=== PATIENT | female | born 1950 | race Caucasian/White ===

== ENCOUNTER → 2016-12-27 | Outpatient (CLI) | payer BC ==
[2015-07-18 19:47] VITALS: BP 196/89
--- NOTE | 2016-12-27 13:50 | CARD ---
APPROVED REPORT EXAM: Two-dimensional and M-mode echocardiogram with Doppler and color Doppler. Other Information Quality : AverageHR: 94bpm Rhythm : Atrial Fibrillation INDICATION Atrial Fibrillation 2D DIMENSIONS RVDd3.4 (2.9-3.5cm)Left Atrium(2D)4.3 (1.6-4.0cm) IVSd0.9 (0.7-1.1cm)Aortic Root(2D)2.7 (2.0-3.7cm) LVDd4.8 (3.9-5.9cm)LVOT Diameter2.2 (1.8-2.4cm) PWd0.9 (0.7-1.1cm)LVDs3.2 (2.5-4.0cm) FS (%) 33.2 %SV65.5 ml LVEF(%)61.7 (>50%) Aortic Valve AoV Peak Kai.123.0cm/sAoV VTI23.0cm AO Peak GR.6.1mmHgLVOT Peak Kai.95.8cm/s LVOT VTI 19.12cmAO Mean GR.4mmHg MARLO (VMAX)2.61ra8LXY (VTI)3.18cm2 Mitral Valve MV E Uycpmvil660.4cm/sMV DECEL HZTD957ms MV E Mean Gr.5mmHgMV DOG43po MVA (PHT)3.20cm2 Pulmonary Valve PV Peak Ddxwmfks15.0cm/sPV Peak Grad.2mmHg RVOT VTI12.4cm Tricuspid Valve TR P. Uzmnushk037lq/sRAP NOPSPMFC4dyCv TR Peak Gr.99seYeLBKT44aqZe LEFT VENTRICLE The left ventricle is normal size. There is normal left ventricular wall thickness. Left ventricle sy stolic function is normal. The Ejection Fraction is 55-60%. There is normal LV segmental wall motion. Diastolic function could not be assessed due to atrial fibrillation. There is no ventricular septal defect visualized. RIGHT VENTRICLE The right ventricle is normal size. The right ventricular systolic function is normal. ATRIA The left atrium is mildly dilated. The right atrium size is normal. The interatrial septum is intact with no evidence for an atrial septal defect or patent foramen ovale as noted on 2-D or Doppler imagi ng. AORTIC VALVE The aortic valve is normal in structure and function. The aortic valve is trileaflet. Doppler and Col or Flow revealed no significant aortic regurgitation. There is no significant aortic valvular stenosi s. MITRAL VALVE The mitral valve leaflets are calcified. There is no evidence of mitral valve prolapse. There is no m itral valve stenosis. Doppler and Color Flow revealed moderate mitral regurgitation. TRICUSPID VALVE The tricuspid valve is normal in structure. Doppler and Color Flow revealed mild tricuspid regurgitat ion. The PA pressure was estimated at 32 mmHg. There is no tricuspid valve stenosis. PULMONIC VALVE The pulmonary valve is normal in structure. Doppler and Color Flow revealed mild pulmonic valvular re gurgitation. There is no pulmonic valvular stenosis. GREAT VESSELS The aortic root is normal in size. The ascending aorta is mildly dilated at 3.6cm. Normal pulmonary v enous flow (Doppler). The IVC is normal in size and collapses >50% with inspiration. PERICARDIAL EFFUSION There is no pleural effusion. There is no evidence of significant pericardial effusion. Critical Notification Critical Value: No <Conclusion> The left ventricle is normal size. Left ventricle systolic function is normal. The Ejection Fraction is 55-60%. There is no significant aortic valvular stenosis. Doppler and Color Flow revealed no significant aortic regurgitation. Doppler and Color Flow revealed moderate mitral regurgitation. Doppler and Color Flow revealed mild tricuspid regurgitation. The PA pressure was estimated at 32 mmHg. The ascending aorta is mildly dilated at 3.6cm.
== END | disposition home or self-care (01) ==
LOC: ECHO 11:04
PROVIDERS: ATTEND Internal Medicine Cardiovascular Disease
DX: I48.0 Paroxysmal atrial fibrillation (principal); I34.0 Nonrheumatic mitral (valve) insufficiency; I07.1 Rheumatic tricuspid insufficiency; I37.1 Nonrheumatic pulmonary valve insufficiency
CPT/HCPCS: 93306

== ENCOUNTER → 2017-03-15 | Day surgery (SDC) | payer BC ==
[2015-07-18 19:47] VITALS: BP 196/89
[~2017-03-15] MED LIST: 0.9 % SODIUM CHLORIDE 10 ML DISP.SYRIN. IV PRN; ASPI325T4 PO; ATOR40TA59 PO; FLEC100T PO; FURO20TA3 PO; IV RINGERS,LACTATED 1000ML 1,000 ML IV SCH; METO25TA9 PO; RIVA20TA2 PO
--- NOTE | 2017-03-15 11:53 | EKG ---
[facility] [address] [place] [address] Test Date: 2017-03-15 Test Time: 11:51:28 Pat Name: MARIA GUADALUPE SEPULVEDA Department: Room: Gender: F [employer]: TV : 1950 Requested By: YESSY CUNHA Order Number: [id number] Reading MD: Rg Cooper Measurements Intervals [place] Rate: 60 P: 36 MT: 232 QRS: 21 QRSD: 102 T: 19 QT: 456 QTc: 461 Interpretive Statements SINUS RHYTHM PROLONGED MT INTERVAL RBBB Electronically Signed On 03-19-2017 9:44:00 CDT by Rg Cooper
== END | disposition home or self-care (01) ==
LOC: SURG 11:25
PROVIDERS: ATTEND Internal Medicine Cardiovascular Disease
DX: I45.10 Unspecified right bundle-branch block (principal); I48.91 Unspecified atrial fibrillation; E78.00 Pure hypercholesterolemia, unspecified; I10 Essential (primary) hypertension; Z98.41 Cataract extraction status, right eye; Z98.42 Cataract extraction status, left eye; Z98.51 Tubal ligation status
CPT/HCPCS: 93005

== ENCOUNTER → 2019-01-08 | Outpatient (CLI) | payer BC ==
[2015-07-18 19:47] VITALS: BP 196/89
[~2019-01-08] MED LIST changes: -0.9 % SODIUM CHLORIDE 10 ML DISP.SYRIN. IV PRN; -ASPI325T4 PO; +ASPI325T8 PO; -IV RINGERS,LACTATED 1000ML 1,000 ML IV SCH; +METO-239 PO; -METO25TA9 PO
--- NOTE | 2019-01-09 10:12 | RAD ---
DATE: 01/09/2019 EXAM: MAMMO PERFECTO SCREENING BILATERAL HISTORY: Baseline screening. COMPARISON: None This study was interpreted with the benefit of Computerized Aided Detection (CAD). FINDINGS: Breast Density: SCATTERED The breast parenchyma shows scattered fibroglandular densities. Breast parenchyma level B. The skin and nipples are within normal limits. No suspicious calcifications, spiculated mass or area of architectural distortion. IMPRESSION: No mammographic evidence of malignancy. BI-RADS CATEGORY: 2 BENIGN FINDING(S) RECOMMENDED FOLLOW-UP: 12M 12 MONTH FOLLOW-UP PQRS compliance statement: Patient information was entered into a reminder system with a target due date for the next mammogram. Mammography is a sensitive method for finding small breast cancers, but it does not detect them all and is not a substitute for careful clinical examination. A negative mammogram does not negate a clinically suspicious finding and should not result in delay in biopsying a clinically suspicious abnormality. "Our facility is accredited by the [employer] Mammography Program."
== END | disposition home or self-care (01) ==
LOC: MAMMO 14:21
PROVIDERS: ATTEND Family Medicine
DX: Z12.31 Encounter for screening mammogram for malignant neoplasm of breast (principal)
CPT/HCPCS: 77063; 77067

== ENCOUNTER → 2019-03-02 | Outpatient (CLI) | payer BC ==
[2015-07-18 19:47] VITALS: BP 196/89
--- NOTE | 2019-03-02 14:31 | CARD ---
MR#: [id number] Date of Study: 03/02/2019 Ordering Physician: YESSY PETTY, Referring Physician: YESSY PETTY, Tech: Lilly Lezama APPROVED REPORT EXAM: Two-dimensional and M-mode echocardiogram with Doppler and color Doppler. Other Information Quality : AverageHR: 65bpm Technically limited study due to body habitus INDICATION Mitral Valve Disease Mitral Regurgitation RISK FACTORS History of Atrial fibrillation. 2D DIMENSIONS RVDd2.8 (2.9-3.5cm)Left Atrium(2D)4.0 (1.6-4.0cm) IVSd1.3 (0.7-1.1cm)Aortic Root(2D)2.6 (2.0-3.7cm) LVDd5.4 (3.9-5.9cm)LVOT Diameter2.0 (1.8-2.4cm) PWd0.9 (0.7-1.1cm)LVDs2.7 (2.5-4.0cm) FS (%) 49.1 %SV111.2 ml Aortic Valve AoV Peak Kai.132.4cm/sAoV VTI34.1cm AO Peak GR.7.0mmHgLVOT Peak Kai.86.0cm/s LVOT VTI 24.94cmAO Mean GR.5mmHg MARLO (VMAX)1.99yg1NLT (VTI)2.37cm2 Mitral Valve MV E Khiffcsa742.9cm/sMV E Peak Gr.122mmHg MV DECEL [id number] A Zwvfsqno091.1cm/s MV E Mean Gr.3mmHgMV HKN10jb E/A Ratio0.7MVA (PHT)3.90cm2 TDI E/Lateral E'13.7E/Medial E'15.5 Pulmonary Valve PV Peak Ldtkahvp00.1cm/sPV Peak Grad.4mmHg Tricuspid Valve TR P. Umtxskwp725cw/sRAP LECEPWZD5skIu TR Peak Gr.84mtHpHJWM72bbZp Pulmonary Vein S1 Ceycvcap10.5cm/sD2 Jeaahpzk11.5cm/s PVa okwlryrd284jxyx LEFT VENTRICLE The left ventricle is normal size. There is mild concentric left ventricular hypertrophy. The left ve ntricular systolic function is normal and the ejection fraction is within normal range. The Ejection Fraction is 55-60%. There is normal LV segmental wall motion. Transmitral Doppler flow pattern is Gra de I-abnormal relaxation pattern. RIGHT VENTRICLE The right ventricle is normal size. There is normal right ventricular wall thickness. The right ventr icular systolic function is normal. ATRIA The left atrium is borderline dilated. The right atrium size is normal. The interatrial septum is int act with no evidence for an atrial septal defect or patent foramen ovale as noted on 2-D or Doppler i maging. AORTIC VALVE The aortic valve is thickened but opens well. Doppler and Color Flow revealed trace aortic regurgitat ion. There is no significant aortic valvular stenosis. MITRAL VALVE The mitral valve is thickened but opens well. There is no evidence of mitral valve prolapse. There is no mitral valve stenosis. Doppler and Color-flow revealed mild mitral regurgitation. TRICUSPID VALVE The tricuspid valve is normal in structure and function. Doppler and Color Flow revealed trace tricus pid regurgitation. There is no tricuspid valve stenosis. PULMONIC VALVE The pulmonic valve is not well visualized. Doppler and Color Flow revealed trace pulmonic valvular re gurgitation. GREAT VESSELS The aortic root is normal in size. The IVC is normal in size and collapses >50% with inspiration. PERICARDIAL EFFUSION There is no evidence of significant pericardial effusion. Critical Notification Critical Value: No <Conclusion> The left ventricle is normal size. The left ventricular systolic function is normal and the ejection fraction is within normal range. The Ejection Fraction is 55-60%. There is mild concentric left ventricular hypertrophy. There is no significant aortic valvular stenosis. Doppler and Color Flow revealed trace aortic regurgitation. Doppler and Color-flow revealed mild mitral regurgitation. Doppler and Color Flow revealed trace tricuspid regurgitation. Signed by : Yessy Petty MD Electronically Approved : 03/02/2019 14:31:09
== END | disposition home or self-care (01) ==
LOC: ECHO 10:56
PROVIDERS: ATTEND Internal Medicine Cardiovascular Disease
DX: I34.0 Nonrheumatic mitral (valve) insufficiency (principal); I11.9 Hypertensive heart disease without heart failure; I48.91 Unspecified atrial fibrillation
CPT/HCPCS: 93306